=== PATIENT | female | born 1990 | race Caucasian/White ===

== ENCOUNTER → 2020-04-30 | Outpatient (CLI) | payer OTHER, SELFPAY | END | disposition home or self-care (01) | LOC: LABSPEC 17:29 | PROVIDERS: PCP Family Medicine; Referring Provider Family Medicine; Visit Provider Family Medicine | DX: U07.1 COVID-19 (principal) | CPT/HCPCS: 87635; C9803; U0003 ==

== ENCOUNTER → 2021-04-15 16:29 | Outpatient (CLI) | payer OTHER, SELFPAY ==
[2021-04-18 09:34] LABS: HIV - WCH Non-Reactive (Nonreactive); Hepatitis B Surface Antigen Non-Reactive (Nonreactive); Hepatitis C Antibody Non-Reactive (Nonreactive)
[2021-04-18 15:07] LABS: HCV Quant. RNA PCR HCV Not Detected IU/mL (.)
== END ==
PROVIDERS: PCP Family Medicine; Referring Provider Family Medicine; Visit Provider Family Medicine
DX: Z77.21 Contact with and (suspected) exposure to potentially hazardous body fluids (principal)
CPT/HCPCS: 36415; 86703; 86803; 87340; 87522

== ENCOUNTER → 2025-06-25 | Outpatient (CLI) | payer OTHER, SELFPAY ==
--- OUTSIDE RECORDS SUMMARY | 2025-06-25 15:49 | XMS RPT_ITS | CCD ---
Author Organization [facility] Results Test Name Value Interpretation Reference Range Facil ity HIV - WCHon 04-18-2021 HIV Non-Reactive Normal Nonreactive [facility] Comment on above: Performed By: #### L 3890.6100, L3890.6300, L3890.6005, L7000.7000 #### [facility] [address] [place], [place], [id number] Hepatitis B Surface Antigeno n 04-18-2021 HEP B Surf Ag Non-Reactive Normal Nonreactive [facility] Comment on above: Performed By: #### L 3890.6100, L3890.6300, L3890.6005, L7000.7000 #### [facility] [address] [place], [place], [id number] Hepatitis C Antibodyon 04-18 Hepatitis C Ab Non-Reactive Normal Nonreactive [facility] Comment on above: Result Comment: Non Reactive: < 0.8 Equivocal: >/= 0.8 to < 1.0 Reactive: >/= 1.0 The CDC recommends that a reactive/equivocal HCV antibody result be followed up by the HCV Nucleic Acid Amplification test (955147) Performed By: #### L 3890.6100, L3890.6300, L3890.6005, L7000.7000 #### [facility] [address] [place], [place], [id number] Hepatitis C,RNA PCR Viral Lo manager agriculture 04-18-2021 TEST INFO: Comment Normal . [facility] Comment on above: Result Comment: The quantitative range of this assay is 15 IU/mL to 100 million IU/mL. Performed at: - [facility] [id number] Marine Technician: Sean Taylor MD, Phone: [phone] Performed By: #### L 3890.6100, L3890.6300, L3890.6005, L7000.7000 #### [facility] [address] [place], [place], [id number] HCV log 10 TNP Normal . [facility] Comment on above: Performed By: #### L 3890.6100, L3890.6300, L3890.6005, L7000.7000 #### [facility] [address] [place], [place], [id number] HCV QT RNA PCR Not detected Normal . [facility] Comment on above: Performed By: #### L 3890.6100, L3890.6300, L3890.6005, L7000.7000 #### [facility] [address] [place], [place], [id number] Summary Purpose Family History No Family History Records Found Advance Directives No Advanced Directives Records Found Additional Source Comments INFORMATION SOURCE (unrecogn ized section and content) DATE CREATED AUTHOR 07/24/2021 [facility] FOR RECORDS PERTAINING TO PATIENTS WHO ARE OR HAVE BEEN ENROLLED IN A CHEMICAL DEPENDENCY/SUBSTANCEABUSE PROGRAM, SOME INFORMATION MAY BE OMITTED. This clinical summary was aggregated from multiple sources. Caution should be exercised in using it in the provision of clinical care. This summary normalizes information from multiple sources, and as a consequence, information in this document may materially change the coding, format and clinical context of patient data. In addition, data may be omitted in some cases. CLINICAL DECISIONS SHOULD BE BASED ON THE PRIMARY CLINICAL RECORDS. [employer] provides no warranty or guarantee of the accuracy or completeness of information in this document.
[2025-06-29 21:07] LABS: HPV APTIMA, High Risk Negative (Negative)
== END | disposition home or self-care (01) ==
LOC: LABSPEC 13:13
PROVIDERS: PCP Family Medicine; Referring Provider Nurse Practitioner Family; Visit Provider Nurse Practitioner Family
DX: Z12.4 Encounter for screening for malignant neoplasm of cervix (principal)
CPT/HCPCS: 87624; 88175; G0145